=== PATIENT | female | born 1965 | race Caucasian/White ===

== ENCOUNTER → 2016-12-12 | Outpatient (CLI) | payer BC | LOC: MC.RAD 14:13 | DX: Z12.31 Encounter for screening mammogram for malignant neoplasm of breast (principal) ==

== ENCOUNTER → 2018-02-05 | Outpatient (CLI) | payer BC | LOC: MC.RAD 12-26 10:00 | DX: Z12.31 Encounter for screening mammogram for malignant neoplasm of breast (principal) ==

== ENCOUNTER → 2019-02-25 | Outpatient (CLI) | payer BC | LOC: MC.RAD 09:22 | DX: Z12.31 Encounter for screening mammogram for malignant neoplasm of breast (principal) ==

== ENCOUNTER → 2020-07-03 | Outpatient (CLI) | payer BC ==
[~2020-07-03] VITALS: Ht 162.6 cm; Wt 73.9 kg
[~2020-07-03] MED LIST: AMBIEN CR 12.12.5 MG PO; ULTRAM 50MG TAB50 MG PO; ZOLOFT 25MG25 MG PO
[2020-07-03 07:19] VITALS: BP 122/81; PULSE 94
[2020-07-03 08:40] VITALS: BP 135/82; PULSE 93
--- NOTE | 2020-07-03 09:10 | NUR ---
pt is taken down to lobby and leaves with
== END ==
LOC: COL.RAD 07:00
DX: M50.30 Other cervical disc degeneration, unspecified cervical region (principal)
CPT/HCPCS: J1100

== ENCOUNTER → 2021-03-01 | Outpatient (CLI) | payer BC | LOC: MC.RAD 09:14 | DX: Z12.31 Encounter for screening mammogram for malignant neoplasm of breast (principal) ==

== ENCOUNTER → 2023-08-22 | Outpatient (CLI) | payer OTHER | LOC: MC.RAD 10:52 | DX: Z12.31 Encounter for screening mammogram for malignant neoplasm of breast (principal); R59.0 Localized enlarged lymph nodes ==